=== PATIENT | male | born 1970 | race Caucasian/White ===

== ENCOUNTER → 2017-05-28 | Outpatient (CLI) | payer BC ==
--- NOTE | ~2017-05-28 | ECHO ---
Stress Echocardiography Report Demographics Patient Name VEL MONIQUE Date of Study 05/28/2017 Patient Number [id number] Visit Number [id number] Date of 1970 Room Number Gender Male Number Age 46 year(s) Referring Teresa Bassett MD Head Up Operator Helper Kelley Whitten Physician RVT Physician Interpreting Teresa Bassett MD Lipstick Molder Physician Supervising Lynette Morales Ordering Teresa Bassett MD, MD/[facility] MOLD STAMPER Physician Nurse Stress Swatch Folder Conclusions Summary Peak stress echo images demonstrate appropriate hyperkinesis of all wall segments without inducible wall motion abnormalities. Stress ECGs show appropriate sinus tachycardia without inducible ST depression Negative stress echo at this give cardiac workload. Procedure Type of Study Stress procedure:Treadmill Stress Echo w/o Contrast. Procedure Date Date: 05/28/2017 Start: 10:06 AM Study Location: Echo Lab Technical Quality: Adequate visualization Indications:Chest discomfort. Appropriate Use Criteria: 9 Patient Status: Routine Rhythm: Within normal limits HR: 82 bpm BP: 133/86 mmHg Rest ECG Normal sinus rhythm. 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 Stress Stress Type: Exercise Peak HR: 153 bpm HR Response: Appropriate Peak BP: 142/70 mmHg BP Response: Appropriate Predicted HR: 173 bpm HR BP Product: [id number] % of predicted HR: 88 Max Exercise: 14.6 METS Test Duration: 10:45 min Reason for Termination: Target heart rate Exercise Effort: Excellent Results ECG Sinus tachycardia. Arrhythmias No rhythm abnormality. Symptoms No cardiovascular symptoms with maximal exercise. HR and BP responded appropriately to exercise. Exercise effort excellent. DTS = + 10. Low risk, await echo results. Lito Ojeda APRN Stress Protocol: Exercise - Garcia M-Mode/2D Measurements LVOT VTI: 17.4 cm Doppler Measurements LVOT Peak Velocity: 0.85 m/s Contractility Score Rest LV regional wall motion:(0-Non visualized 1-Normal 2-Hypokinesis 3-Akinesis 4-Dyskinesis 5-Aneurysm) Signature dtt: Serjio Moore (cardio) dtd: 05/28/17 1006 Physician Self Edit
== END | disposition disaster alternative care site (69) ==
LOC: GCAR 09:42
DX: R07.89 Other chest pain (principal); I51.89 Other ill-defined heart diseases; R00.0 Tachycardia, unspecified